=== PATIENT | female | born 1985 | race Caucasian/White ===

== ENCOUNTER 2019-10-25 16:39 | Inpatient (IN) | payer OTHER ==
[~2019-10-25] VITALS: Ht 162 cm; Wt 97.0 kg
[2019-10-25] VITALS (11 sets, daily range): BP systolic 92–130; BP diastolic 57–105
--- NOTE | 2019-10-25 16:50 | NUR ---
SHIVA ENRIQUE presented to unit via ambulation from ED, accompanied by S.O, with c/o SPONTANEOUS LABOR. SHIVA ENRIQUE weighed, gowned, voided, and to bed. EFHM and TOCO applied, VS taken. SHIVA ENRIQUE oriented to bed controls, call light, TV, heat, and A/C controls. Addendum: 10/25/19 at 2101 by ANDREA MELÉNDEZ RN Patient unable to void at this time
[2019-10-25] MEDS ORDERED: BETAMETHASONE ACE/NA PHOS 6 MG/ML (CELESTONE SOLUSPAN) IM SCH (17:30)
[2019-10-25] MEDS ORDERED: NS IV 1000 ML 1,000 ML ONE (17:45)
[2019-10-25] MEDS ORDERED: BETAMETHASONE ACE/NA PHOS 6 MG/ML (CELESTONE SOLUSPAN) ONE (17:56)
[2019-10-25] MEDS ORDERED: METOCLOPRAMIDE INJ 10 MG/2 ML (REGLAN) ONE (18:24)
[2019-10-25] MEDS ORDERED: CITRIC ACID/SOB CIT (BICITRA) 30 ML UDC ONE (18:25)
[2019-10-25] MEDS ORDERED: FAMOTIDINE 20MG/2ML IV (PEPCID) ONE (18:25)
[2019-10-25] MEDS ORDERED: OXYTOCIN PRE-MIX DRIP 500 ML IV SCH (18:25)
[2019-10-25] MEDS ORDERED: ceFAZolin 2 GM IV Premixed 50 ML ONE (18:26)
[2019-10-25] MEDS ORDERED: TETANUS,DIPTH,PERTUSS P/F (BOOSTRIX) 0.5 ML VIAL IM SCH (18:30)
[2019-10-25] MEDS ORDERED: ONDANSETRON 4 MG/2 ML (SDV) Z0FRAN IVP PRN (18:30)
[2019-10-25] MEDS ORDERED: METOCLOPRAMIDE INJ 10 MG/2 ML (REGLAN) IV ONE (18:30)
[2019-10-25] MEDS ORDERED: CITRIC ACID/SOB CIT (BICITRA) 30 ML UDC PO ONE (18:30)
[2019-10-25] MEDS ORDERED: MEASLES,MUMPS,RUBELLA 1 EA INJ SC SCH (18:30)
[2019-10-25] MEDS ORDERED: ceFAZolin 2 GM IV Premixed 50 ML IV ONE (18:30)
--- NOTE | 2019-10-25 18:33 | History & Physical-OB ---
OB - Chief Complaint & HPI Date/Time Date of Admission: Date of Admission: Oct 25, 2019 at 18:23 Date seen by a Provider: Oct 25, 2019 Time Seen by a Provider: 18:28 Chief Complaint/History OB-Reason for Admission/Chief: Labor (previous ) Hx : 2 Hx Para: 1 Expected Date of Delivery: Dec 06, 2019 Gestational Age in Weeks: 34 Other reason for admission: This 34 yo @ 34 weeks presents from home after being sent home from [facility] twice this week for contractions. She reports efraín q 5-8 min since Tuesday and has been unable to sleep. Returned to [facility] once and was given terbutaline and ambien, she reports trying to sleep but pain was too severe, she had some light bleeding and came to our hospital. Admission Nurse Assessment Rev: Yes History of Labs Obtaining records from [facility] Allergies and Home Medications Allergies Coded Allergies: No Known Drug Allergies (Unverified , 10/25/19) Patient Home Medication List Home Medication List Reviewed: Yes OB - History Hx of Present Care: Yes Ultrasounds: Other (Care with [facility],) Obstetrical Complications: None (per patient) Medical Complications: None (per patient) Patient Past Medical History n/a OB - Admission Exam Physical Exam Vitals: Vital Signs 10/25/19 17:09 Temp 36.3 Pulse 100 Resp 20 Pulse Ox 99 O2 Delivery Room Air HEENT: NCAT Heart: Rhythm Normal Lungs: Clear Abdomen: Gravid Extremities: Normal Reflexes: Normal Cervical Dilatation: 10cm Effacement: 100% Station: 0 Membranes: Intact Heart Rate: 130's Accelerations: Accelerations Present Decelerations: No Decelerations Short Term Variability: Present Senior Care Manager Variability: Average (6-25) Contractions on Admission: < 5 Minutes Apart Intensity: Firm OB - Assessment/Plan/Diagnosis Assessment Assessment: section, labor Admission Dx 34 yo @ 34 weeks labor- complete dilatation with bulging membranes Previous Admission Status: Inpatient Order (span 2 midnights) Reason for Inpatient Admission: Repeat cesearan at 34 weeks due to complete dilatation and bulging membranes Plan Plan: Section Other Plan Discussed with patient risk of and concerns with delivery at 34 weeks. Risk of anesthesia discussed will attempt lateral spinal, if unsuccessful proceed with general, patient is understandable and agreeable. ZACKARY XIONG DO Oct 25, 2019 18:33
[2019-10-25] MEDS ORDERED: fentaNYL INJECTION 100 MCG/2 ML AMP ONE (18:36)
[2019-10-25 18:39] LABS: BASOPHILS % (AUTO) 0 % (0-10); EOSINOPHILS % (AUTO) 0 % (0-10); HEMATOCRIT 33 % (35-52); HEMOGLOBIN 11.5 G/DL (11.5-16.0); LYMPHOCYTES % (AUTO) 5 % (12-44); MEAN CORPUSCULAR HEMOGLOBIN 29 PG (25-34); MEAN CORPUSCULAR HGB CONC 34 G/DL (32-36); MEAN CORPUSCULAR VOLUME 84 FL (80-99); MEAN PLATELET VOLUME 10.4 FL (7.4-10.4); MONOCYTES # (AUTO) 0.9 X 10^3 (0.0-1.0); MONOCYTES % (AUTO) 5 % (0-12); NEUTROPHILS # (AUTO) 18.6 X 10^3 (1.8-7.8); NEUTROPHILS % (AUTO) 91 % (42-75); PLATELET COUNT 207 10^3/uL (130-400); RED CELL DISTRIBUTION WIDTH 14.1 % (10.0-14.5); WHITE BLOOD COUNT 20.4 10^3/uL (4.3-11.0)
--- NOTE | 2019-10-25 18:40 | Discharge Inst-Women's Service ---
Discharge Inst-Women's Serv Depart Medication/Instructions New, Converted or Re-Newed RX: RX on Chart Problems Reviewed?: Yes Consults/Follow Up Additional Follow Up: Yes Orders/Referrals Dr. Mcclelland in 7-10 days and primary ob in 6 weeks Activity Activity: Activity as Tolerated Driving Instructions: No Driving for 1 Week NO SMOKING: NO SMOKING Nothing Inside Vagina: No Douching, No Martinez, No Tampons Diet Discharge Diet: No Restrictions Symptoms to Report to : Bleeding Excessive, Pain Increased, Fever Over 101 Degrees F, Vaginal Bleeding Increase, Questions/Concerns For Any Problems or Questions: Contact Your Physician Skin/Wound Care Infection Signs and Symptoms: Increased Redness, Foul Odor of Wound, Increased Drainage, Skin Itchy or Has a Rash, Increased Swelling, Temperature Above 101 F Operative Area Clean and Dry: Keep Incision Clean/Dry Stitches/[place]/Dermabond: Dermabond, Care of Stitches Bathing Instructions: ZACKARY Shelton DO Oct 25, 2019 18:40
[2019-10-25] MEDS ORDERED: DCS100C PO (18:41)
[2019-10-25] MEDS ORDERED: HYDR-83 PO (18:41)
[2019-10-25] MEDS ORDERED: IBUP-844 PO (18:41)
[2019-10-25 19:04] LABS: LYMPHOCYTES % (MANUAL) 9 %; MONOCYTES % (MANUAL) 3 %; NEUTROPHILS % (MANUAL) 88 %; RBC MORPH NORMAL
[2019-10-25] MEDS ORDERED: METHYLERGONOVINE 0.2 MG/ML (METHERGINE) AMP ONE (19:13)
[2019-10-25] MEDS ORDERED: ONDANSETRON 4 MG/2 ML (SDV) Z0FRAN ONE (19:18)
[2019-10-25] MEDS ORDERED: OXYTOCIN PRE-MIX DRIP 500 ML IV ONE (19:46)
[2019-10-25] MEDS ORDERED: ONDANSETRON 4 MG/2 ML (SDV) Z0FRAN IV PRN (20:00)
[2019-10-25] MEDS ORDERED: NALOXONE 0.4 MG/ML 1 ML (NARCAN) VIAL IV PRN (20:00)
[2019-10-25] MEDS ORDERED: diphenhydrAMINE 50 MG/ML INJ (BENADRYL) IV PRN (20:00)
[2019-10-25] MEDS ORDERED: LACTATED RINGERS 1,000 ML IV SCH (20:30)
--- NOTE | 2019-10-25 20:40 | NUR ---
Pt to pp unit via bed per Beata wade rn. scds plugged in and pumping, baird removed per this rn, see int. iv line managed, see emar. no ss distress, vss see int. Will cont to monitor.
[2019-10-25] MEDS: KETOROLAC 30 MG/ML VIAL IV SCH (20:45)
[2019-10-25] MEDS ORDERED: NS IV 1000 ML 1,000 ML IV SCH (21:00)
[2019-10-25] MEDS ORDERED: CATHETER FLUSH 10 ML SYR IV SCH ×2 (22:00)
--- OUTSIDE RECORDS SUMMARY | 2019-10-25 22:15 | XMS REPORT | Continuity of Care Document ---
Demographics Preferred Language Unknown Marital Status Unknown Yazidi Affiliation Unknown Race Unknown Ethnic Group Unknown Author Organization Unknown Address Unknown Phone Unavailable Allergies There is no data. Medications There is no data. Problems There is no data. Procedures There is no data. Results Test Result Range Insulin - 04/14/16 08:45 Insulin 12.10 uU/mL 2.10-19.60 Testosterone, Free, Direct - 04/14/16 08 :45 FREE TESTOSTERONE(DIRECT) 1.4 PG/ML 0.0- 4.2 Progesterone - 07/11/17 15:30 Progesterone 13.8 ng/mL Progesterone - 07/11/17 15:30 PROGESTERONE 13.8 NG/ML Beta HCG - 07/11/17 15:30 Beta HCG 2586 mIU/mL 5-25 Beta HCG - 07/14/17 15:28 Beta HCG 9079 mIU/mL 5-25 3 Hour Glucose Tolerance - 01/07/18 07:3 3 Glucose 1 Hour 186 Glucose 2 Hour 119 Glucose 3 Hour 94 Glucose Fasting 85 mg/dL 70-110 Progesterone - 04/03/19 09:49 Progesterone 27.3 ng/mL Progesterone - 04/03/19 09:49 PROGESTERONE 27.3 ng/mL Beta HCG - 04/03/19 09:49 Beta HCG 897 mIU/mL 5-25 Insulin - 04/11/19 09:27 Insulin 11.90 uU/mL 2.10-19.60 Complete blood count (CBC) with automate d white blood cell (WBC) differential - 10/25/19 18:30 Blood leukocytes automated count (number/volume) 20.4 10*3/uL 4.3-11.0 Blood erythrocytes automated count (number/volume) 3.96 10*6/uL 4.35-5.85 Venous blood hemoglobin measurement (mass/volume) 11.5 g/dL 11.5-16.0 Blood hematocrit (volume fraction) 33 % 35-52 Automated erythrocyte mean corpuscular volume 84 [ foz_us] 80-99 Automated erythrocyte mean corpuscular h emoglobin (mass per erythrocyte) 29 pg 25-34 Automated erythrocyte mean corpuscular h emoglobin concentration measurement (mass/volume) 34 g/dL 32-36 Automated erythrocyte distribution width ratio 14. 1 % 10.0- 14.5 Automated blood platelet count (count/volume) 207 10*3/uL 130-400 Automated blood platelet mean volume measurement 10.4 [foz_us] 7.4-10.4 Automated blood neutrophils/100 leukocytes 91 % 42-75 Automated blood lymphocytes/100 leukocytes 5 % 12-44 Blood monocytes/100 leukocytes 5 % 0-12 Automated blood eosinophils/100 leukocytes 0 % 0-10 Automated blood basophils/100 leukocytes 0 % 0-10 Blood neutrophils automated count (number/volume) 18.6 10*3 1.8-7.8 Blood lymphocytes automated count (number/volume) 1.0 10*3 1.0-4.0 Blood monocytes automated count (number/volume) 0. 9 10*3 0.0-1.0 Automated eosinophil count 0.0 10*3/uL 0 .0-0.3 Automated blood basophil count (count/volume) 0.0 10*3/uL 0.0-0.1 Manual absolute plasma cell count - 10/07 12/26 18:30 Blood monocytes/100 leukocytes 3 % NRG Manual blood segmented neutrophils/100 leukocytes 88 % NRG Manual blood lymphocytes/100 leukocytes 9 % NRG Blood erythrocyte morphology finding identification NORMAL NRG Blood type T Indirect antibody screen [facility], [facility] - 10/25/19 18:30 WRISTBAND NUMBER [id number] NRG ABO+Rh group AP NRG Blood group antibody screen NEGATIVE NR G Encounters ACCT No. Visit Date/Time Discharge Status Pt. Type Provider Facility Loc./Unit Complaint [id number] 07/13/2017 10:19:00 Document Registration [id number] 07/11/2017 15:26:00 Document Registration [id number] 04/04/2019 00:06:00 Document Registration [id number] 04/03/2019 09:44:00 Document Registration [id number] 10/25/2019 18:47:00 Document Registration [id number] 04/11/2019 09:24:00 04/11/2019 23:59: 00 DIS Outpatient Beba Noyola [id number] 04/03/2019 09:44:00 04/03/2019 23:59: 00 DIS Outpatient Beba Noyola [id number] 01/07/2018 07:23:00 01/07/2018 23:59: 00 DIS Outpatient Beba Noyola [id number] 07/14/2017 15:24:00 07/14/2017 23:59: 00 DIS Outpatient Beba Noyola [id number] 07/11/2017 15:26:00 07/11/2017 23:59: 00 DIS Outpatient Swetha Shoemaker [id number] 04/14/2016 08:57:00 04/14/2016 23:59: 00 DIS Outpatient KARLA LENZ
[2019-10-25] MEDS: HYDROcodone/APAP 5 MG/325 MG (LORTAB) TAB PO PRN (22:19)
--- NOTE | 2019-10-25 23:04 | OPERATIVE REPORT ---
DATE OF SERVICE: PREOPERATIVE DIAGNOSES: 1. A 34-year-old G2, P1 at 34 weeks' gestation. 2. labor with complete dilation of cervix and bulging membranes. 3. Previous section. POSTOPERATIVE DIAGNOSES: 1. A 34-year-old G2, P1 at 34 weeks' gestation. 2. labor with complete dilation of cervix and bulging membranes. 3. Previous section. PROCEDURE: Repeat low transverse section. SURGEON: Grant Xiong, ANESTHESIA: Spinal. ESTIMATED BLOOD LOSS: 500 mL. URINE OUTPUT: 700 mL, clear at the end of the procedure. FLUIDS: 1200 mL lactated Ringer's solution. FINDINGS: A live female infant weighing 5 pounds 3 ounces, Apgars were not given. Grossly normal appearing uterus, bilateral fallopian tubes and ovaries. SPECIMEN SENT: Placenta. INDICATIONS FOR PROCEDURE: This 34-year-old female is a patient that presented to our labor and delivery unit with contractions that she reported she had been having since Tuesday. She presented to the [facility] in [place] twice in the last two days. The first time she reported being given a medication to slow her contractions which lasted for 15 minutes; however, due to no cervical change and being told that she was closed, she was sent home. She returned the following day not being able to sleep and the patient reports being given Ambien and sent home again due to no cervical change. She reports not being able to sleep despite the Ambien and contractions persisted every 3-5 minutes, so she presented to our hospital. Upon evaluation, she was found to be complete with bulging membranes. I attempted to get betamethasone; however, due to imminent delivery, decision was made to proceed with repeat . Risks of this were reviewed with the patient in detail including risk for prematurity, difficulties bleeding, risk from anesthesia, risk from the procedure in detail, possible need for blood transfusion, postoperative timeframe and recovery were all discussed with the patient. After all of her questions were answered, consent was obtained and the patient was taken to the operating room. OPERATIVE REPORT IN DETAIL: Once in the operating room, spinal anesthesia was found to be adequate. She was placed in the supine position with a leftward tilt, prepped and draped in normal sterile fashion. A timeout was performed and anesthesia was tested. I then proceeded with making a Pfannenstiel skin incision through the previously existing scar using a knife and carried down to the underlying fascia using Bovie cautery. The fascial incision extended laterally using Bovie cautery. Superior aspect of the fascial incision was then grasped with Zach clamps, tented up and dissected off the underlying rectus muscles. The inferior aspect of the fascial incision was then grasped with Zach clamps, tented upward and dissected off the underlying rectus muscles. The rectus muscles were then dissected down the midline, which exposed the peritoneum, which I entered bluntly and extended using blunt traction. Erickson ring retractor was placed in the peritoneal incision, which offers excellent lateral sidewall retraction. I then identified the lower uterine segment, which was found to be thinned out. I made a low transverse incision into the vesicouterine peritoneum, which was very thin and membranes were encountered almost immediately on the other side. I extended the uterine incision laterally and superiorly using bandage scissors. Amniotomy was performed in the process of doing this. The was found in vertex presentation. Clear fluid was noted. With gentle fundal pressure, the 's head was delivered through the incision where the nares and oropharynx were bulb suctioned. Anterior and posterior shoulders were delivered. Infant was then brought to the operative field where the cord was doubly clamped and cut and infant handed off to the waiting nurses in attendance and certified neurodiagnostic technologist in attendance, Dr. Aleman. Cord blood was collected, 3-vessel cord with intact placenta was delivered spontaneously thereafter. IV Pitocin was initiated to facilitate uterine contraction. Uterine fundus confirmed by manual massage. Uterus was exteriorized and cleared of all endometrial clots and debris. I then proceeded with closing the uterine incision using 0 Vicryl suture in running locked fashion. Second layer of imbricating 0 Monocryl was placed. Excellent hemostasis was noted after doing this. I then placed the uterus back in the pelvis and copiously irrigated the pelvis using normal saline. Once again, there was no active bleeding noted from any of my dissection planes. I placed Interceed antiadhesive over my low transverse incision. At that point, I removed the Erickson ring retractor and proceeded with closing the peritoneum using 3-0 Vicryl suture in a running fashion. The rectus muscle reapproximated using 3-0 Vicryl suture in interrupted fashion. The fascia was reapproximated using 0 Vicryl suture in running fashion. Subcutaneous tissue was reapproximated using 3-0 plain interrupted subcutaneous stitches and skin was reapproximated using 4-0 Monocryl in a running subcuticular. Dermabond was applied to incision and sterile dressing was adhesed with white tape. The patient tolerated the procedure well and sent to recovery area in stable condition. Lap and sponge counts were correct at the end of the procedure. Instrument count was correct as well. Two grams of Ancef given preoperatively for infection prophylaxis. Job ID: [id number] DocumentID: [id number] Dictated Date: 10/25/2019 19:48:29 Online Merchandising Coordinator Date: 10/25/2019 23:03:42 Dictated By: GRANT XIONG DO
[2019-10-26] MEDS: METOCLOPRAMIDE 10 MG (REGLAN) TAB PO SCH ×2 (01:03→09:11)
[2019-10-26] MEDS: DOCUSATE SODIUM 100 MG (COLACE) CAP PO SCH ×2 (01:04→09:11)
--- NOTE | 2019-10-26 01:30 | NUR ---
Pt up to bathroom, standby for first void since surgery, 600ml noted in hat, pericare pads changed with assist, pt ambulatory to bed, settled per rn assist, scds on and pumping, will to monitor.
[2019-10-26] MEDS: KETOROLAC 30 MG/ML VIAL IV SCH (02:53)
[2019-10-26 02:56] VITALS: BP 120/74
[2019-10-26 06:03] LABS: BASOPHILS % (AUTO) 0 % (0-10); EOSINOPHILS % (AUTO) 0 % (0-10); HEMATOCRIT 31 % (35-52); HEMOGLOBIN 10.6 G/DL (11.5-16.0); LYMPHOCYTES # (AUTO) 0.8 X 10^3 (1.0-4.0); LYMPHOCYTES % (AUTO) 4 % (12-44); MEAN CORPUSCULAR HEMOGLOBIN 29 PG (25-34); MEAN CORPUSCULAR HGB CONC 35 G/DL (32-36); MEAN CORPUSCULAR VOLUME 85 FL (80-99); MEAN PLATELET VOLUME 10.9 FL (7.4-10.4); MONOCYTES % (AUTO) 5 % (0-12); NEUTROPHILS # (AUTO) 17.7 X 10^3 (1.8-7.8); NEUTROPHILS % (AUTO) 90 % (42-75); PLATELET COUNT 196 10^3/uL (130-400); WHITE BLOOD COUNT 19.6 10^3/uL (4.3-11.0)
[2019-10-26] MEDS: HYDROcodone/APAP 5 MG/325 MG (LORTAB) TAB PO PRN (06:36)
--- NOTE | 2019-10-26 06:38 | Anesthesia-General Post-Op ---
General Patient Condition Mental Status/LOC: Same as Preop Cardiovascular: Satisfactory Nausea/Vomiting: Absent Respiratory: Satisfactory Pain: Controlled Complications: Absent Post Op Complications Complications None Follow Up Care/Instructions Patient Instructions None needed. Anesthesia/Patient Condition Patient Condition Patient is doing well, no complaints, stable vital signs, no apparent adverse anesthesia problems. No complications reported per nursing. BACILIO VOGT CRNA Oct 26, 2019 06:38
[2019-10-26] MEDS ORDERED: IBUPROFEN 600 MG (MOTRIN) TAB PO ONE (08:50)
[2019-10-26 09:04] VITALS: BP 116/70
--- NOTE | 2019-10-26 10:55 | Postpartum Progress Note ---
BEBETO BERRY,MED STUDENT 10/26/19 1055: Note Note Day # 1 Subjective: Patient complains of mild tightness when standing. Ambulating, voiding. Tolerating a regular diet without nausea or vomiting. Normal lochia. Pain is well controlled with oral pain medications. Physical Exam: General - Alert and oriented, no apparent distress Abdomen - Soft, appropriately tender to palpation, non-distended, fundus firm at umbilicus Extremities - no edema, negative Mansoor's bilaterally Incision: clean, dry and intact Assessment: Post- day # 1, status post RLTCS Acute blood loss anemia Plan: Routine care. Encourage ambulation. Ferrous sulfate supplementation. Plan for discharge today Vitals - Labs Vital Signs - I&O Vital Signs Date Time Temp Pulse Resp B/P (MAP) Pulse Ox O2 Delivery O2 Flow Rate FiO2 10/26/19 09:04 36.3 105 18 116/70 (85) 98 Room Air 10/26/19 02:56 36.3 96 20 120/74 (89) 95 10/25/19 21:00 37.0 84 20 130/86 (101) 98 10/25/19 20:38 124/78 (93) 10/25/19 20:35 37.1 23 96/87 (90) 100 Room Air 10/25/19 20:34 Room Air 10/25/19 20:30 12 121/105 (110) 99 Room Air 10/25/19 20:25 Room Air 10/25/19 20:19 22 112/67 (82) 99 Room Air 10/25/19 20:14 Room Air 10/25/19 20:11 13 110/59 (76) 97 Room Air 10/25/19 20:00 13 93/64 (74) 97 Room Air 10/25/19 20:00 Room Air 10/25/19 19:50 25 100/64 (76) 95 Room Air 10/25/19 19:45 Room Air 10/25/19 19:45 36.6 22 92/57 (69) 96 Room Air 10/25/19 17:09 36.3 100 20 99 Room Air 10/25/19 17:00 36.3 100 20 99 Room Air 10/25/19 17:00 36.3 100 20 126/76 (93) I & O 10/26/19 07:00 Intake Total 500 ml Output Total 700 ml Balance -200 ml Labs Laboratory Tests 10/25/19 18:30: White Blood Count 20.4H, Red Blood Count 3.96L, Hemoglobin 11.5, Hematocrit 33L, Mean Corpuscular Volume 84, Mean Corpuscular Hemoglobin 29, Mean Corpuscular Hemoglobin Concent 34, Red Cell Distribution Width 14.1, Platelet Count 207, Mean Platelet Volume 10.4, Neutrophils (%) (Auto) 91H, Lymphocytes (%) (Auto) 5L , Monocytes (%) (Auto) 5, Eosinophils (%) (Auto) 0, Basophils (%) (Auto) 0, Neutrophils # (Auto) 18.6H, Lymphocytes # (Auto) 1.0, Monocytes # (Auto) 0.9, Eosinophils # (Auto) 0.0, Basophils # (Auto) 0.0, Neutrophils % (Manual) 88, Lymphocytes % (Manual) 9, Monocytes % (Manual) 3, Blood Morphology Comment NORMAL 10/26/19 05:14: White Blood Count 19.6H, Red Blood Count 3.63L, Hemoglobin 10.6L, Hematocrit 31L , Mean Corpuscular Volume 85, Mean Corpuscular Hemoglobin 29, Mean Corpuscular Hemoglobin Concent 35, Red Cell Distribution Width 14.0, Platelet Count 196, Mean Platelet Volume 10.9H, Neutrophils (%) (Auto) 90H, Lymphocytes (%) (Auto) 4L, Monocytes (%) (Auto) 5, Eosinophils (%) (Auto) 0, Basophils (%) (Auto) 0, Neutrophils # (Auto) 17.7H, Lymphocytes # (Auto) 0.8L, Monocytes # (Auto) 1.0, Eosinophils # (Auto) 0.0, Basophils # (Auto) 0.0 ZACKARY XIONG DO 10/27/19 0732: Note Note Verification and Attestation of Medical Student E/M Service A medical student performed and documented this service in my presence. I reviewed and verified all information documented by the medical student and made modifications to such information, when appropriate. I personally performed the physical exam and medical decision making. Zackary Xiong, Oct 27, 2019,07:32 BEBETO BERRY,MED STUDENT Oct 26, 2019 10:55 ZACKARY XIONG DO Oct 27, 2019 07:32
--- NOTE | 2019-10-26 12:04 | NUR ---
Dr Mcclelland here to see pt. Plan for discharge this afternoon.
--- NOTE | 2019-10-26 14:00 | NUR ---
Discharge instructions explained to pt with copy provided to pt along with prescriptions. Pt notified of need to schedule follow up appointments. Pt verbalizes understanding of instructions, signs to verify. Denies needs or concerns at this time. Awaiting med rec to finish certificate, then will d/c
--- NOTE | 2019-10-26 14:30 | NUR ---
Pt taken off unit via wheelchair to private vehicle accompanied by RN and S.O. No s/s of distress noted.
[2019-10-26] MEDS ORDERED: IBUPROFEN 600 MG (MOTRIN) TAB PO SCH (18:30)
== END 2019-10-26 14:30 | disposition home or self-care (01) | DRG 788 ==
LOC: WSo 16:39 → LDRP 16:39 → WSo 18:23 → LDRP 18:23
PROVIDERS: ADMIT Obstetrics & Gynecology; ATTEND Obstetrics & Gynecology
PROC: 10D00Z1 Extraction of Products of Conception, Low, Open Approach (ICD-10-PCS; principal; 2019-10-25 18:41)
DX: O60.14X0 Preterm labor third trimester with preterm delivery third trimester, not applicable or unspecified (principal); O34.211 Maternal care for low transverse scar from previous cesarean delivery; O62.0 Primary inadequate contractions; Z3A.34 34 weeks gestation of pregnancy; Z37.0 Single live birth
CPT/HCPCS: 36415; 85007; 85025; 85027; 86850; 86900; 86901; 99212

== ENCOUNTER 2020-12-18 13:54 | Outpatient (CLI) | payer OTHER ==
[~2020-12-18] VITALS: Ht 162.6 cm; Wt 77.6 kg
[~2020-12-18 13:54] MED LIST changes: -HYDR-3817 PO
[2020-12-19] MEDS ORDERED: HYDR-3817 PO (10:35)
== END 2020-12-18 14:39 | disposition home or self-care (01) ==
LOC: PREOP 13:54
PROVIDERS: ATTEND Surgery
DX: Z01.818 Encounter for other preprocedural examination (principal)

== ENCOUNTER → 2020-12-18 | Outpatient (CLI) | payer OTHER ==
[~2020-12-18] MED LIST: ACHD5005 PO; DCS100C PO; HYDR-3817 PO; IBUP-844 PO
--- NOTE | 2020-12-18 12:42 | Diagnostic Imaging Report ---
PROCEDURE: US Gallbladder. TECHNIQUE: Multiple real-time grayscale images were obtained over the right upper quadrant in various projections. INDICATION: Right upper quadrant pain. FINDINGS: The liver is normal in size at 14 cm. There does appear to be some mild increased echogenicity throughout the liver consistent with hepatic steatosis. No discrete liver mass is detected. There are several stones within the gallbladder in the region of gallbladder neck. However, gallbladder wall does not appear to be thickened. The extra hepatic bile duct is borderline at 6 mm. Pancreas unremarkable. Aorta is nonaneurysmal. IVC is patent. Right kidneys without calculi or hydronephrosis. There is no ascites. IMPRESSION: 1. Mild hepatic steatosis. 2. Cholelithiasis. There is no definite evidence of acute cholecystitis. Dictated by: Dictated on workstation # [id number]
== END ==
LOC: RAD 12:00
PROVIDERS: ATTEND Surgery
DX: K76.0 Fatty (change of) liver, not elsewhere classified (principal); K80.20 Calculus of gallbladder without cholecystitis without obstruction
CPT/HCPCS: 76705

== ENCOUNTER 2020-12-19 08:52 | Day surgery (SDC) | payer OTHER ==
[~2020-12-19] VITALS: Ht 162.6 cm; Wt 77.6 kg
[2020-12-19] VITALS (11 sets, daily range): BP systolic 128–147; BP diastolic 85–99
[2020-12-19] MEDS ORDERED: ceFAZolin 2 GM IV Premixed 50 ML IV ONE (09:30)
[2020-12-19] MEDS ORDERED: LIDOCAINE/EPI 1%-1:200,000 (XYLOCAINE) 30 ML VIAL ONE (09:37)
[2020-12-19] MEDS ORDERED: MIDAZOLAM 2 MG/2 ML (VERSED) VIAL IV ONE (09:45)
[2020-12-19] MEDS: LACTATED RINGERS 1,000 ML IV PRN ×2 (09:45→11:22)
[2020-12-19] MEDS ORDERED: fentaNYL INJ 100 MCG/2 ML AMP ONE (10:29)
[2020-12-19] MEDS ORDERED: MIDAZOLAM 2 MG/2 ML (VERSED) VIAL ONE (10:30)
--- NOTE | 2020-12-19 10:34 | Progress Note-Pre Operative ---
Pre-Operative Progress Note H&P Reviewed The H&P was reviewed, patient examined and no changes noted. Date Seen by Provider: Dec 19, 2020 Time Seen by Provider: 10:00 Date H&P Reviewed: Dec 19, 2020 Time H&P Reviewed: 10:00 Pre-Operative Diagnosis: sx chronic calculous cholecystitis GORGE ASTUDILLO MD Dec 19, 2020 10:34
[2020-12-19] MEDS ORDERED: HYDR-3817 PO (10:35)
--- NOTE | 2020-12-19 10:35 | Discharge Inst-Surgical ---
D/C Lap Instructions-WILDA New, Converted, or Re-Newed RX: RX on Chart Follow Up Appt in 2 weeks Activity as tolerated No driving for 24 hours No driving while on pain medications Incentive Spirometry use every 2 hours while awake Regular Diet Symptoms to Report: Fever over 101 degree F, Nausea/Vomiting Infection Signs and Symptoms to report: Increased redness, Foul odor of wound, Increased drainage Bathing instructions: May shower Operative Area Clean/Dry; Keep incision clean/dry If any problems/questions: Contact your physician or go to Emergency Room GORGE ASTUDILLO MD Dec 19, 2020 10:35
[2020-12-19] MEDS ORDERED: morphine INJ 10 MG/ML 1ML (SYR OR VIAL) IVP PRN ×2 (10:45)
[2020-12-19] MEDS ORDERED: oxyCODONE/APAP 5/325MG (PERCOCET 5) TABLET PO PRN (10:45)
[2020-12-19] MEDS ORDERED: ACETAMINOPHEN 325 MG TABLET PO PRN (10:45)
[2020-12-19] MEDS ORDERED: ONDANSETRON 4 MG/2 ML (SDV) Z0FRAN IVP PRN ×2 (10:45→12:00)
[2020-12-19] MEDS ORDERED: ROCURONIUM 10 MG/ML 5 ML SYRINGE IV ONE (10:56)
[2020-12-19] MEDS ORDERED: proPOfol 200 MG/20 ML (DIPRIVAN) VIAL IV ONE (10:56)
[2020-12-19] MEDS ORDERED: LIDOCAINE PF 2% 5 ML (XYLOCAINE) VIAL ONE (10:56)
[2020-12-19] MEDS ORDERED: ONDANSETRON 4 MG/2 ML (SDV) Z0FRAN ONE (10:56)
[2020-12-19] MEDS ORDERED: NEOSTIGMINE 3 MG/3 ML VIAL ONE (10:56)
[2020-12-19] MEDS ORDERED: GLYCOPYRROLATE 0.2 MG/ML (ROBINUL) 2 ML VIAL ONE (10:57)
[2020-12-19] MEDS ORDERED: KETOROLAC 30 MG/ML VIAL ONE (11:33)
--- NOTE | 2020-12-19 11:39 | Progress Note-Post Operative ---
Post-Operative Progess Note Surgeon (s)/Api Developer (s) Surgeon GORGE ASTUDILLO MD Api Developer: none Pre-Operative Diagnosis sx chronic calculous cholecystitis Post-Operative Diagnosis same Procedure & Operative Findings Date of Procedure 12/19/20 Procedure Performed/Findings laparoscopic cholecystectomy Anesthesia Type get Estimated Blood Loss Estimated blood loss (mL): minimal Specimens/Packing Specimens Removed gallbladder GORGE ASTUDILLO MD Dec 19, 2020 11:39
[2020-12-19] MEDS ORDERED: SEVOFLURANE (ULTANE) 15 ML INHAL SOLN ONE (11:42)
--- NOTE | 2020-12-19 11:50 | Anesthesia-General Post-Op ---
General Patient Condition Mental Status/LOC: Same as Preop Cardiovascular: Satisfactory Nausea/Vomiting: Absent Respiratory: Satisfactory Pain: Controlled Complications: Absent Post Op Complications Complications None Follow Up Care/Instructions Patient Instructions None needed. Anesthesia/Patient Condition Patient Condition Patient is doing well, no complaints, stable vital signs, no apparent adverse anesthesia problems. No complications reported per nursing. AKASH ALEGRIA CRNA Dec 19, 2020 11:50
[2020-12-19] MEDS ORDERED: MEPERIDINE (DEMEROL) INJ 50 MG/ML IVP ONE (12:00)
[2020-12-19] MEDS ORDERED: HYDROmorphone 2 MG/ML VIAL (DILAUDID) IV ONE (12:00)
[2020-12-19] MEDS ORDERED: morphine INJ 10 MG/ML 1ML (SYR OR VIAL) IVP ONE (12:00)
--- NOTE | 2020-12-19 20:17 | OPERATIVE REPORT ---
DATE OF SERVICE: 12/19/2020 ATTENDING PRIMARY CARE PHYSICIAN: Dr. Ambar Gonzalez. PREOPERATIVE DIAGNOSIS: Symptomatic chronic calculous cholecystitis. POSTOPERATIVE DIAGNOSIS: Symptomatic chronic calculous cholecystitis. PROCEDURE: Laparoscopic cholecystectomy. SURGEON: Gorge Astudillo MD. ANESTHESIA: General endotracheal. ESTIMATED BLOOD LOSS: Minimal. FINDINGS: Distended gallbladder, multiple small gallstones. DISPOSITION: The patient tolerated the procedure well. INDICATIONS: The patient is a 35-year-old female, who has had approximately 9 to 12-month history of pain in the right upper abdominal quadrant with associated abdominal bloating, nausea as well as diarrhea. She was unsure of what this was at first; however, in the past few weeks, this has become more frequent as well as more severe in nature. She eventually underwent an ultrasound, which did show gallstones. DESCRIPTION OF PROCEDURE: The patient was brought to the operating room, laid supine on the table. After adequate IV pain and sedative medications and general endotracheal intubation, the abdomen was prepped and draped in standard surgical fashion. A 0.5% Marcaine with epinephrine was then used to anesthetize overlying skin left upper abdominal quadrant and transverse skin incision made using a 15 blade. An 0 silk suture was applied to the medial aspect of the incision for retraction and a Veress needle inserted with a low opening pressure of 0 mmHg. The abdomen was then insufflated to 15 mmHg pressure. The Veress needle removed and a 5 mm XL trocar placed followed by a 5 mm 45-degree angle laparoscope visualizing the peritoneal cavity. A 4-quadrant abdominal exploration was performed. There was a distended gallbladder, no gallbladder wall thickening. Under direct visualization, we then proceeded to place an infraumbilical 10 mm port after the skin and peritoneal lining were anesthetized using 0.5% Marcaine with epinephrine and a transverse skin incision made using 15 blade. In a similar manner, a right upper abdominal quadrant 5 mm port was placed. The patient was then placed in reverse Trendelenburg position as well as plane right side up, left side down. The fundus of the gallbladder was then retracted anteriorly and superiorly. The hepatoduodenal ligament was then dissected with electrocautery as well as blunt dissection using a hook instrument as well as a [place] dissector. The entire critical view of safety was identified including the triangle of Calot as well as the cystic duct and artery as only two structures going into the gallbladder as well as the cystic plate behind the proximal gallbladder. A timeout was then taken and the cystic duct and artery were then clipped proximally and distally and cut with EndoShears. The gallbladder was then dissected off the liver bed using cautery on hook instrument with visualization of good hemostasis as well as no leaking ducts of Luschka. The gallbladder was removed through the 10 mm port site using an EndoCatch bag. The 10 mm port site fascia and peritoneum were then closed under direct visualization using a Clinton-Shaw device and an 0 Vicryl suture. The abdomen was desufflated and remaining ports removed. All skin incisions were closed using 4-0 Monocryl running subcuticular sutures. Wounds were then cleaned and covered with Dermabond. The patient tolerated the procedure well. We will start IV normal pain medication as well as a clear liquid diet. When she is tolerating clears, has good pain control with oral pain medications, ambulating well, we will discharge her home. She will be instructed to do no heavy lifting or exertion for the next two weeks. Job ID: [id number] DocumentID: [id number] Dictated Date: 12/19/2020 11:44:35 Sports Team Manager Date: 12/19/2020 20:16:31 Dictated By: GORGE ASTUDILLO MD
== END 2020-12-19 13:45 | disposition home or self-care (01) ==
LOC: SDC 08:52
PROVIDERS: ATTEND Surgery
DX: K80.10 Calculus of gallbladder with chronic cholecystitis without obstruction (principal); K21.9 Gastro-esophageal reflux disease without esophagitis; R74.8 Abnormal levels of other serum enzymes; Z79.899 Other long term (current) drug therapy; Z90.89 Acquired absence of other organs; Z80.8 Family history of malignant neoplasm of other organs or systems; Z80.3 Family history of malignant neoplasm of breast
CPT/HCPCS: 84703; 87081

== ENCOUNTER 2021-08-03 05:32 | Outpatient (CLI) | payer OTHER ==
[~2021-08-03] VITALS: Ht 162.6 cm; Wt 77.7 kg
[~2021-08-03 05:32] MED LIST changes: -DCS100C PO; +DOCU-239 PO; +HYDR-3817 PO
[2021-08-03] MEDS ORDERED: PANT40TA52 PO (08:04)
== END 2021-08-03 08:05 ==
LOC: PREOP 05:32
PROVIDERS: ATTEND Surgery
DX: Z01.818 Encounter for other preprocedural examination (principal)

== ENCOUNTER 2021-08-05 12:05 | Day surgery (SDC) | payer OTHER ==
[~2021-08-05] VITALS: Ht 163 cm; Wt 77.7 kg
[~2021-08-05 12:05] MED LIST changes: +PANT40TA52 PO
--- NOTE | 2021-08-05 12:11 | Progress Note-Pre Operative ---
Pre-Operative Progress Note H&P Reviewed The H&P was reviewed, patient examined and no changes noted. Date Seen by Provider: Aug 05, 2021 Time Seen by Provider: 12:00 Date H&P Reviewed: Aug 05, 2021 Time H&P Reviewed: 12:00 Pre-Operative Diagnosis: GERD, dysphagia GORGE ASTUDILLO MD Aug 05, 2021 12:11
--- NOTE | 2021-08-05 12:12 | Discharge Inst-Surgical ---
D/C Lap Instructions-WILDA Follow Up Activity as tolerated High Fiber Diet 25g or more per day Avoid Alcohol, Caffeine, Spicy [place] and Acid foods. Drink 64 fluid oz or more of fluids per day. Symptoms to Report: Fever over 101 degree F, Nausea/Vomiting If any problems/questions: Contact your physician or go to Emergency Room GORGE ASTUDILLO MD Aug 05, 2021 12:12
[2021-08-05] MEDS ORDERED: ONDANSETRON 4 MG (ZOFRAN) ORAL DISSOLVE TAB PO PRN (12:15)
[2021-08-05] MEDS ORDERED: ONDANSETRON 4 MG/2 ML (SDV) Z0FRAN IVP PRN (12:15)
[2021-08-05] MEDS ORDERED: LACTATED RINGERS 1,000 ML IV STA (12:20)
[2021-08-05] MEDS ORDERED: LACTATED RINGERS 1,000 ML IV ONE (12:26)
[2021-08-05 12:30] VITALS: BP 149/100
[2021-08-05] MEDS ORDERED: HURRICAINE EXT TUBE (BENZOCAINE) XX PRN (12:30)
[2021-08-05] MEDS ORDERED: LIDOCAINE JELLY 2% 6 ML SYRINGE MM PRN (12:30)
[2021-08-05] MEDS ORDERED: MIDAZOLAM 2 MG/2 ML (VERSED) VIAL ONE (13:23)
[2021-08-05] MEDS ORDERED: proPOfol 200 MG/20 ML (DIPRIVAN) VIAL IV ONE ×2 (13:23→13:46)
[2021-08-05 13:45] VITALS: BP 138/90
[2021-08-05 13:50] VITALS: BP 134/89
[2021-08-05 13:55] VITALS: BP 130/90
--- NOTE | 2021-08-05 14:00 | Anesthesia-General Post-Op ---
MAC Patient Condition Mental Status/LOC: Same as Preop Cardiovascular: Satisfactory Nausea/Vomiting: Absent Respiratory: Satisfactory Pain: Controlled Complications: Absent Post Op Complications Complications None Follow Up Care/Instructions Patient Instructions None needed. Anesthesiology Discharge Order Discharge Order Patient is doing well, no complaints, stable vital signs, no apparent adverse anesthesia problems. No complications reported per nursing. AKASH ALEGRIA CRNA Aug 05, 2021 14:00
[2021-08-05 14:25] VITALS: BP 138/87
[2021-08-05 14:28] VITALS: BP 138/87
--- NOTE | 2021-08-05 18:18 | OPERATIVE REPORT ---
DATE OF SERVICE: 08/05/2021 ATTENDING PRIMARY CARE PHYSICIAN: Ambar Gonzalez MD. PREOPERATIVE DIAGNOSES: Gastroesophageal reflux disease and dysphagia. POSTOPERATIVE DIAGNOSES: Reflux esophagitis, [place] grade B with a mild distal esophageal stricture, no hiatal hernia, and moderate gastritis. PROCEDURES PERFORMED: EGD with biopsy and balloon dilatation. SURGEON: Gorge Astudillo MD. ANESTHESIA: Monitored anesthesia care. ESTIMATED BLOOD LOSS: Minimal. FINDINGS: Reflux esophagitis, [place] grade B with a mild distal esophageal stricture, no hiatal hernia, and moderate gastritis. DISPOSITION: The patient tolerated the procedure well. INDICATIONS FOR PROCEDURE: The patient is a 35-year-old female, who has had issues with gastroesophageal reflux disease as well as increased belching as well as palpitations on an intermittent basis. However, in the past few months, she has developed dysphagia for dry breads and crackers as well as lean meats. She does not report any regurgitation. She also does not report any lisbet episodes of nausea nor vomiting as well as no hematemesis and no coffee-ground emesis. She is also status post laparoscopic cholecystectomy in December of 2020. She is concerned about her thyroid gland. Her mother was diagnosed with mixed papillary as well as follicular cell thyroid cancer, which did rapidly progress to an anaplastic carcinoma. DESCRIPTION OF PROCEDURE: The patient was brought to the endoscopy suite and laid in the left lateral decubitus position. After adequate IV pain and sedative medications and monitored anesthesia care, the mouthpiece was applied. The endoscope was then placed into the mouth visualizing the pharynx and hypopharyngeal region. Vocal cords, epiglottis and vallecula identified and appeared to be normal. The endoscope was gently intubated the esophageal opening and esophagus and the endoscope was advanced to the first, second and third portion of the esophagus. At the level of the GE junction, a reflux esophagitis, [place] grade B identified as well as a mild distal esophageal stricture. A biopsy was taken with forceps with visualization of good hemostasis. The endoscope was then advanced into the stomach and the endoscope retroflexed visualizing no hiatal hernia. There was a moderate severity gastritis. No formal ulcerations, polyps or any neoplasms. A biopsy was taken of the antrum to rule out H. pylori with visualization of good hemostasis. The endoscope was then advanced to the pylorus and the first and second portion of the duodenum, which appeared normal with no distal obstructions. The balloon was then placed in the stomach and pulled back to the area of the stricture. We then proceeded in a graded stepwise fashion from 2, 4 and eventually 6 atmospheres of pressure or 20 mm in luminal diameter with moderate resistance and left this in place for 60 seconds. The balloon was then desufflated and removed with visualization of good hemostasis as well as no mucosal tears. Endoscope was then slowly withdrawn with taking a second look and suctioning of residual air with no additional findings. The patient tolerated the procedure well. We will recommend the necessary lifestyle and dietary accommodation including small and more frequent meals, avoidance of eating at night as well as head elevation while lying supine. She also needs to avoid caffeinated beverages, spicy, greasy and acidic foods. If she does have a recurrence of dysphagia, we will proceed with a repeat dilatation. Just for peace of mind as well, we will likely proceed with an outpatient ultrasound of the thyroid gland. Job ID: [id number] DocumentID: [id number] Dictated Date: 08/05/2021 13:56:12 Set And Exhibit Designer Date: 08/05/2021 18:18:22 Dictated By: GORGE ASTUDILLO MD
== END 2021-08-05 14:36 | disposition home or self-care (01) ==
LOC: ENDO 12:05
PROVIDERS: ATTEND Surgery
DX: K21.00 Gastro-esophageal reflux disease with esophagitis, without bleeding (principal); K22.2 Esophageal obstruction; K29.50 Unspecified chronic gastritis without bleeding; Z80.8 Family history of malignant neoplasm of other organs or systems; Z79.899 Other long term (current) drug therapy
CPT/HCPCS: 84703